=== PATIENT | male | born 1950 | race Caucasian/White ===

== ENCOUNTER → 2016-05-28 | Outpatient (CLI) | payer MEDICARE, OTHER ==
[~2016-05-28] MED LIST: AMLO5TAB2 PO; ASPI1TAB69 PO; ATOR40TA16 PO; CINA30 PO; CITA20TA4 PO; CYCL5TAB PO; FISHCAP4 PO; GLUC15009 PO; HYDR-3516 PO; LEVA750T PO; PANT40TA3 PO; PRED20 PO; SEVEL800 PO; SPIRCAP INH; SYMB80AE INH; VENTAER INH; VITA10003 PO; ZOLP10TA3 PO
--- NOTE | 2016-05-28 10:10 | RADRPT ---
EXAM DATE/TIME: 05/28/2016 00:00 [place] COMPARISON: No previous studies available for comparison. OUTSIDE STUDY REVIEWED: CT of the abdomen and pelvis without intravenous contrast dated 05/06/2016. INDICATIONS : Liver mass biopsy. FINDINGS: The outside CT examination demonstrates 3 lesions within the right lobe of the liver. The largest is mildly exophytic arising from the lower right lobe measuring approximately 8.7 x 6.9 cm. The other 2 are smaller and located near the liver dome and measure up to 16 mm. In the appearance of the larger lesion could potentially represent a giant hemangioma given the appearance. However, these lesions ar e all incompletely characterized given the lack of intravenous contrast. The patient has end-stage re nal disease and is on dialysis. CONCLUSION: There are 3 lesions in the liver with the largest measuring 8.7 cm. These are incompletely characteri zed on the outside examination. Since it is possible these lesions could represent hemangiomas I wonikolai d suggest performing liver protocol CT with and without intravenous contrast. The patient is not a ca ndidate for MRI contrast since the patient is on dialysis. Additionally, this examination could help us target the biopsy to the most suspicious lesion. Alternatively, one could consider PET CT examinat ion to determine if these lesions are hypermetabolic. If these lesions remain suspicious following on e of these examinations it would be reasonable to proceed with biopsy. Chinmay Leone MD on May 28, 2016 at 9:53 Board Certified Radiologist. This report was verified electronically.
== END ==
LOC: HRAD 09:26
PROVIDERS: ATTEND Internal Medicine
DX: R16.0 Hepatomegaly, not elsewhere classified (principal)
CPT/HCPCS: 76140

== ENCOUNTER 2017-09-17 16:43 | Inpatient (IN) ==
[2017-09-18] MEDS ORDERED: Acetaminophen 325 MG Tablet PO PRN (16:17)
[2017-09-18] MEDS ORDERED: Sod Chloride 0.9% Inj 1,000 ML OTHER PRN ×2 (16:17)
[2017-09-18] MEDS ORDERED: Heparin 10,000 UNITS/10 ML Vial (for IV use) IV.FLUSH PRN (16:17)
[2017-09-18] MEDS ORDERED: Gelatin 12 MM/7 MM Topical Foam TOPICAL PRN (16:17)
[2017-09-18] MEDS ORDERED: Heparin 10,000 UNITS/10 ML Vial (for IV use) OTHER PRN (16:17)
[2017-09-18] MEDS ORDERED: Albumin Human 25% Inj 100 ML IV.SIG PRN (16:17)
[2017-09-18] MEDS ORDERED: Sod Chloride 0.9% Inj 1,000 ML IV.CONT PRN (16:17)
[2017-09-19] MEDS ORDERED: Chlorhexidine Gluconate 2% 1 Pack (2 Cloths) TOPICAL PRN ×2 (00:01→04:00)
[2017-09-19] MEDS ORDERED: Bisacodyl 10 MG Supp RECTAL PRN (00:01)
[2017-09-19] MEDS ORDERED: HYDROmorphone PF Inj 2 MG/ML Vial ONE (01:36)
[2017-09-19] MEDS: HYDROmorphone PF Inj 2 MG/ML Vial IV.PUSH PRN ×3 (01:38→17:37)
[2017-09-19] MEDS ORDERED: Chlorhexidine Gluconate 2% 1 Pack (2 Cloths) TOPICAL SCH (04:00)
[2017-09-19] MEDS: Chlorhexidine Gluconate 2% 1 Pack (2 Cloths) TOPICAL SCH (04:00)
[2017-09-19] MEDS: amLODIPine 5 MG Tablet PO SCH (08:52)
[2017-09-19] MEDS: Senna/Docusate Sodium 8.6/50 MG Tablet PO SCH ×2 (08:54→21:41)
[2017-09-19] MEDS: Citalopram 20 MG Tablet PO SCH (08:58)
[2017-09-19] MEDS: Tiotropium Bromide 18 MCG/ACT Inhaler INH SCH (08:58)
[2017-09-19 10:01] LABS: Baso # (Auto) 0.1 th/mm3 (0.0-0.2); Baso % (Auto) 0.4 % (0.0-2.0); Eos # (Auto) 0.1 th/mm3 (0.0-0.4); Eos % (Auto) 0.5 % (0.0-4.0); Hematocrit 30.6 % (39.0-51.0); Hemoglobin 9.5 gm/dL (13.0-17.0); Lymph # (Auto) 0.9 th/mm3 (1.0-4.8); Lymph % (Auto) 4.5 % (9.0-44.0); Mean Corpuscular Hemoglobin 27.8 pg (27.0-34.0); Mean Platelet Volume 9.7 fL (7.0-11.0); Mono # (Auto) 1.7 th/mm3 (0.0-0.9); Mono % (Auto) 8.4 % (0.0-8.0); Neut % (Auto) 86.2 % (16.0-70.0); Platelet Count 310 th/mm3 (150-450); Red Cell Distribution Width 20.1 % (11.6-17.2); White Blood Count 19.8 th/mm3 (4.0-11.0)
[2017-09-19 10:06] LABS: Mean Corpuscular HGB Conc 30.9 % (32.0-36.0)
[2017-09-19 10:43] LABS: Platelet Estimate Normal (Normal); Platelet Morphology Normal (Normal)
--- NOTE | 2017-09-19 13:56 | P.PNNP ---
Subjective Interval history: Reports feeling weakness and right sided abdominal pain <Aracely Zhang - Last Filed: 09/19/17 13:52> Physical Exam Vital signs: Vital Signs 09/19/17 00:00 09/19/17 01:00 09/19/17 02:00 Temperature 97.8 F Pulse Rate 98 H 96 H 96 H Respiratory Rate 15 16 14 Blood Pressure 105/58 L 109/54 L 89/53 L Pulse Oximetry 100 100 100 09/19/17 03:00 09/19/17 04:00 09/19/17 05:00 Temperature 97.9 F Pulse Rate 94 H 92 H 90 Respiratory Rate 17 17 16 Blood Pressure 105/54 L 104/55 L 105/51 L Pulse Oximetry 100 100 100 09/19/17 06:00 09/19/17 07:00 09/19/17 08:00 Temperature 98.5 F Pulse Rate 88 84 91 H Respiratory Rate 17 16 19 Blood Pressure 112/55 L 147/62 H 121/60 Pulse Oximetry 100 100 98 09/19/17 09:23 09/19/17 12:53 Temperature 98.2 F Pulse Rate 87 Respiratory Rate 16 Blood Pressure 104/55 L Pulse Oximetry 96 96 Intake & Output 09/18/17 09/19/17 09/19/17 18:59 06:59 18:59 Other: # Voids 0 Date of Last Bowel Movement 09/19/17 09/19/17 # Bowel Movements 1 - Constitutional no acute distress - Routine HEENT Exam Head: Present: normocephalic ENT: Present: mucous membranes moist - Routine Neck Exam Absent: JVD - Routine Respiratory Exam Present: decreased breath sounds. Absent: rales, rhonchi, wheezes - Routine Cardiovascular Exam Present: RRR - Routine Abdominal Exam Present: soft, normoactive bowel sounds, tenderness - Routine Extremities Exam Present: AV fistula. Absent: Nasima's sign - Routine Skin Exam Present: intact - Routine Neurological Exam Present: alert, oriented X3 - Detailed Neurological Exam: Coma Scale Eye Opening: Spontaneous Verbal Response: Oriented - Routine Psychiatric Exam Present: normal affect <Aracely Zhang - Last Filed: 09/19/17 13:52> Vital signs: Vital Signs 09/19/17 00:00 09/19/17 01:00 09/19/17 02:00 Temperature 97.8 F Pulse Rate 98 H 96 H 96 H Respiratory Rate 15 16 14 Blood Pressure 105/58 L 109/54 L 89/53 L Pulse Oximetry 100 100 100 09/19/17 03:00 09/19/17 04:00 09/19/17 05:00 Temperature 97.9 F Pulse Rate 94 H 92 H 90 Respiratory Rate 17 17 16 Blood Pressure 105/54 L 104/55 L 105/51 L Pulse Oximetry 100 100 100 09/19/17 06:00 09/19/17 07:00 09/19/17 08:00 Temperature 98.5 F Pulse Rate 88 84 91 H Respiratory Rate 17 16 19 Blood Pressure 112/55 L 147/62 H 121/60 Pulse Oximetry 100 100 98 09/19/17 09:23 09/19/17 12:53 09/19/17 14:00 Temperature 98.2 F Pulse Rate 87 87 Respiratory Rate 16 Blood Pressure 104/55 L Pulse Oximetry 96 96 Intake & Output 09/18/17 09/19/17 09/19/17 18:59 06:59 18:59 Other: # Voids 0 Date of Last Bowel Movement 09/19/17 09/19/17 # Bowel Movements 1 <Verónica Green - Last Filed: 09/19/17 16:49> Assessment and Plan - Assessment (1) End stage renal disease on dialysis Code(s): N18.6 - End stage renal disease; Z99.2 - Dependence on renal dialysis Status: Acute Plan: End stage renal disease on hemodialysis on Wednesday, , and Wednesday. Has dialysis is located in [facility] and restaurant host/hostess is Dr. Telles. Left AVF with positive thrill and bruit Continue Renvela and Sensipar Avoid IVF administration. Will continue with dialysis on scheduled days Hemodialysis yesterday tolerated well Labs in AM <Aracely Zhang - Last Filed: 09/19/17 13:52> - Assessment (1) End stage renal disease on dialysis Code(s): N18.6 - End stage renal disease; Z99.2 - Dependence on renal dialysis Status: Acute Plan: Patient seen and examined, agree with above. HD was done yesterday. <Verónica Green - Last Filed: 09/19/17 16:49>
[2017-09-19 15:51] LABS: Anion Gap 11 meq/L (5-15); Aspartate Aminotransferase 724 U/L (15-37); Blood Urea Nitrogen 38 mg/dL (7-18); Calcium 8.6 mg/dL (8.5-10.1); Carbon Dioxide 30.6 meq/L (21.0-32.0); Chloride 97 meq/L (98-107); Glomerular Filtration Rate 10 mL/min (>89); Glucose,Random 112 mg/dL (74-106); Potassium 4.7 meq/L (3.5-5.1); Sodium 139 meq/L (136-145)
[2017-09-19 15:52] LABS: Alanine Aminotransferase 453 U/L (12-78); Albumin 3.4 g/dL (3.4-5.0); Alkaline Phosphatase 147 U/L (45-117); Total Protein 7.5 g/dL (6.4-8.2)
--- NOTE | 2017-09-19 18:48 | P.PNGS ---
Subjective Patient reports: feels better, still having pain Physical Exam Vital signs: Vital Signs 09/19/17 00:00 09/19/17 01:00 09/19/17 02:00 Temperature 97.8 F Pulse Rate 98 H 96 H 96 H Respiratory Rate 15 16 14 Blood Pressure 105/58 L 109/54 L 89/53 L Pulse Oximetry 100 100 100 09/19/17 03:00 09/19/17 04:00 09/19/17 05:00 Temperature 97.9 F Pulse Rate 94 H 92 H 90 Respiratory Rate 17 17 16 Blood Pressure 105/54 L 104/55 L 105/51 L Pulse Oximetry 100 100 100 09/19/17 06:00 09/19/17 07:00 09/19/17 08:00 Temperature 98.5 F Pulse Rate 88 84 91 H Respiratory Rate 17 16 19 Blood Pressure 112/55 L 147/62 H 121/60 Pulse Oximetry 100 100 98 09/19/17 09:23 09/19/17 12:53 09/19/17 14:00 Temperature 98.2 F Pulse Rate 87 87 Respiratory Rate 16 Blood Pressure 104/55 L Pulse Oximetry 96 96 Intake & Output 09/18/17 09/19/17 09/19/17 18:59 06:59 18:59 Other: # Voids 0 Date of Last Bowel Movement 09/19/17 09/19/17 # Bowel Movements 1 - Constitutional no acute distress - Routine Abdominal Exam Present: soft Comments: diffuse pain without peritonitis Assessment and Plan - Assessment (1) Hemoperitoneum Code(s): K66.1 - Hemoperitoneum Status: Acute - Plan 67yo male with hemoperitoneum after biospy, stable vitals, stable HH, follow closely.
[2017-09-20] MEDS: Chlorhexidine Gluconate 2% 1 Pack (2 Cloths) TOPICAL SCH (03:29)
[2017-09-20 06:21] LABS: Hematocrit 25.3 % (39.0-51.0); Hemoglobin 8.1 gm/dL (13.0-17.0); Mean Corpuscular HGB Conc 32.2 % (32.0-36.0); Mean Corpuscular Hemoglobin 28.7 pg (27.0-34.0); Mean Corpuscular Volume 89.2 fL (80.0-100.0); Mean Platelet Volume 9.1 fL (7.0-11.0); Platelet Count 274 th/mm3 (150-450); Red Blood Count 2.83 mil/mm3 (4.50-5.90); Red Cell Distribution Width 19.1 % (11.6-17.2); White Blood Count 15.5 th/mm3 (4.0-11.0)
[2017-09-20 07:13] LABS: Calcium 7.7 mg/dL (8.5-10.1); Carbon Dioxide 26.5 meq/L (21.0-32.0); Potassium 4.7 meq/L (3.5-5.1)
[2017-09-20] MEDS: Citalopram 20 MG Tablet PO SCH (08:33)
[2017-09-20] MEDS: Senna/Docusate Sodium 8.6/50 MG Tablet PO SCH ×2 (08:35→21:26)
[2017-09-20] MEDS: amLODIPine 5 MG Tablet PO SCH (08:36)
[2017-09-20] MEDS: HYDROmorphone PF Inj 2 MG/ML Vial IV.PUSH PRN (08:43)
[2017-09-20] MEDS: Tiotropium Bromide 18 MCG/ACT Inhaler INH SCH (08:45)
--- NOTE | 2017-09-20 09:48 | P.PNNP ---
Subjective Interval history: Reports right sided abdominal discomfort. No shortness of breath or edema. <Aracely Zhang - Last Filed: 09/20/17 09:44> Interval history: Patient seen and examined, agree with above. HD done yesterday, tolerated well. <Verónica Green - Last Filed: 09/20/17 22:12> Physical Exam Vital signs: Vital Signs 09/19/17 12:53 09/19/17 14:00 09/19/17 20:00 Temperature 98.2 F 98.1 F Pulse Rate 87 87 87 Respiratory Rate 16 18 Blood Pressure 104/55 L 118/55 L Pulse Oximetry 96 93 L 09/20/17 00:00 09/20/17 04:40 09/20/17 08:00 Temperature 97.5 F L 97.3 F L 97.6 F Pulse Rate 88 96 H 84 Respiratory Rate 18 18 17 Blood Pressure 120/57 L 140/64 111/52 L Pulse Oximetry 93 L 92 L 99 Intake & Output 09/19/17 09/20/17 09/20/17 18:59 06:59 18:59 Intake Total 0 / 0 480 / 480 Output Total 0 / 0 Balance 0 / 0 480 / 480 Intake: Oral 480 / 480 Other 0 / 0 Output: Urine 0 / 0 Other: Date of Last Bowel Movement 09/19/17 - Constitutional no acute distress, cooperative - Routine HEENT Exam Head: Present: normocephalic ENT: Present: mucous membranes moist - Routine Neck Exam Present: supple. Absent: JVD - Routine Respiratory Exam Present: decreased breath sounds. Absent: rales, rhonchi, wheezes - Routine Cardiovascular Exam Present: RRR, murmur - Routine Abdominal Exam Present: soft, normoactive bowel sounds, tenderness - Routine Extremities Exam Absent: edema, Nasima's sign - Routine Skin Exam Present: intact, warm - Routine Neurological Exam Present: alert, oriented X3 - Detailed Neurological Exam: Coma Scale Eye Opening: Spontaneous - Routine Psychiatric Exam Present: normal affect <Aracely Zhang - Last Filed: 09/20/17 09:44> Vital signs: Vital Signs 09/20/17 00:00 09/20/17 04:40 09/20/17 08:00 Temperature 97.5 F L 97.3 F L 97.6 F Pulse Rate 88 96 H 84 Respiratory Rate 18 18 17 Blood Pressure 120/57 L 140/64 111/52 L Pulse Oximetry 93 L 92 L 99 09/20/17 12:00 09/20/17 16:00 09/20/17 20:00 Temperature 98.3 F 98.3 F 97.7 F Pulse Rate 87 85 85 Respiratory Rate 17 17 16 Blood Pressure 119/57 L 111/56 L 133/61 Pulse Oximetry 90 L 95 95 Intake & Output 09/20/17 09/20/17 09/21/17 06:59 18:59 06:59 Intake Total 1380 / 1380 Output Total 0 / 0 Balance 1380 / 1380 Intake: Oral 1380 / 1380 Output: Urine 0 / 0 <Verónica Green - Last Filed: 09/20/17 22:12> Assessment and Plan - Assessment (1) End stage renal disease on dialysis Code(s): N18.6 - End stage renal disease; Z99.2 - Dependence on renal dialysis Status: Acute Plan: End stage renal disease on hemodialysis on Wednesday, , and Wednesday. Has dialysis is located in [facility] and continuous process rotary drum tanner is Dr. Telles. Left AVF with positive thrill and bruit Continue Renvela and Sensipar Avoid IVF administration. Will continue with dialysis on scheduled days Hemodialysis planned for tomorrow will remove fluid as tolerated <Aracely Zhang - Last Filed: 09/20/17 09:44> - Assessment (1) End stage renal disease on dialysis Code(s): N18.6 - End stage renal disease; Z99.2 - Dependence on renal dialysis Status: Acute <Verónica Green - Last Filed: 09/20/17 22:12>
--- NOTE | 2017-09-20 12:19 | P.PNGS ---
Subjective Patient reports: still having pain, afebrile (hh stable, bp stable) Physical Exam Vital signs: Vital Signs 09/19/17 12:53 09/19/17 14:00 09/19/17 20:00 Temperature 98.2 F 98.1 F Pulse Rate 87 87 87 Respiratory Rate 16 18 Blood Pressure 104/55 L 118/55 L Pulse Oximetry 96 93 L 09/20/17 00:00 09/20/17 04:40 09/20/17 08:00 Temperature 97.5 F L 97.3 F L 97.6 F Pulse Rate 88 96 H 84 Respiratory Rate 18 18 17 Blood Pressure 120/57 L 140/64 111/52 L Pulse Oximetry 93 L 92 L 99 Intake & Output 09/19/17 09/20/17 09/20/17 18:59 06:59 18:59 Intake Total 0 / 0 480 / 480 Output Total 0 / 0 Balance 0 / 0 480 / 480 Intake: Oral 480 / 480 Other 0 / 0 Output: Urine 0 / 0 Other: Date of Last Bowel Movement 09/19/17 - Constitutional no acute distress - Routine Abdominal Exam Present: soft (mild distension, no rebound, mild ttp diffuse) Assessment and Plan - Assessment (1) Hemoperitoneum Code(s): K66.1 - Hemoperitoneum Status: Acute - Plan s/p ir bx of 9cm liver mass anemia or blood loss, s/p ir embolization, stable currently on surgical floor PLAN ok for diet defer to medicine, cards, nephro check abdominal exams non op mgnt will follow prn
--- NOTE | 2017-09-20 22:03 | P.PN ---
Subjective Interval history: Nursing denies any deterioration since last night. Patient tolerating p.o. intake. Patient denies any nausea vomiting. Is able to demonstrate orientation 3 but with slow mentation. Physical Exam Vital signs: Vital Signs 09/20/17 00:00 09/20/17 04:40 09/20/17 08:00 Temperature 97.5 F L 97.3 F L 97.6 F Pulse Rate 88 96 H 84 Respiratory Rate 18 18 17 Blood Pressure 120/57 L 140/64 111/52 L Pulse Oximetry 93 L 92 L 99 09/20/17 12:00 09/20/17 16:00 Temperature 98.3 F 98.3 F Pulse Rate 87 85 Respiratory Rate 17 17 Blood Pressure 119/57 L 111/56 L Pulse Oximetry 90 L 95 Intake & Output 09/20/17 09/20/17 09/21/17 06:59 18:59 06:59 Intake Total 1380 / 1380 Output Total 0 / 0 Balance 1380 / 1380 Intake: Oral 1380 / 1380 Output: Urine 0 / 0 Narrative: Abdomen is soft, nontender, nondistended Unlabored breathing, clear lungs bilaterally Results - Labs CBC & Chem 7: 09/20/17 05:25 09/20/17 05:25 Laboratory Results - last 24 hr 09/17/17 09/20/17 09/20/17 16:45 05:25 05:25 WBC 15.5 H RBC 2.83 L Hgb 8.1 L Hct 25.3 L MCV 89.2 MCH 28.7 MCHC 32.2 RDW 19.1 H Plt Count 274 MPV 9.1 Sodium 141 Potassium 4.7 Chloride 101 Carbon Dioxide 26.5 Anion Gap 14 BUN 62 H Creatinine 7.76 H Estimated GFR 7 L Random Glucose 96 Calcium 7.7 L D MTS Gel Crossmatch See Detail Assessment and Plan - Plan Liver mass with bleeding during biopsy Biopsy performed at [facility], patient was transferred for higher level of care needs s/p embolization of right inferior hepatic artery with Dr. Álvarez on 09/17/2017 General surgery is aware of patient, consult if further bleeding occurs Core biopsies are suspicious for vascular tissue, hemangioma is top suspect with official results pending Outpatient follow-up at [facility] for pathology results Acute blood loss anemia Trending hemoglobin stable End-stage renal disease, dialysis Continue with dialysis on Wednesday, , Wednesday Urine output is minimal per patient history Continue Tenisha Ramirez Nephrology following Hypertension Continue Norvasc 5 mg daily Insomnia Continue Ambien 10 mg nightly Depression continue citalopram COPD Stable, currently on 4 L anticipate walk test being needed Deconditioning -We will obtain physical therapy evaluation to see if patient is safe to go home since he lives by himself DVT prophylaxis SCDs, chemoprophylaxis held due to acute blood loss from liver biopsy
[2017-09-21] MEDS: Chlorhexidine Gluconate 2% 1 Pack (2 Cloths) TOPICAL SCH (07:15)
[2017-09-21] MEDS: amLODIPine 5 MG Tablet PO SCH (08:09)
[2017-09-21] MEDS: Tiotropium Bromide 18 MCG/ACT Inhaler INH SCH (08:10)
[2017-09-21] MEDS: Citalopram 20 MG Tablet PO SCH (08:10)
[2017-09-21] MEDS: Senna/Docusate Sodium 8.6/50 MG Tablet PO SCH (08:15)
--- NOTE | 2017-09-21 13:55 | P.PN ---
Subjective Interval history: Patient seen after HD, has mild SOB, on nasal cannula, no abd. pain. Physical Exam Vital signs: Vital Signs 09/20/17 16:00 09/20/17 20:00 09/21/17 00:00 Temperature 98.3 F 97.7 F 97.5 F L Pulse Rate 85 85 87 Respiratory Rate 17 16 16 Blood Pressure 111/56 L 133/61 134/67 Pulse Oximetry 95 95 97 09/21/17 04:00 09/21/17 08:00 09/21/17 12:00 Temperature 97.7 F 98.0 F 97.7 F Pulse Rate 82 81 103 H Respiratory Rate 16 18 18 Blood Pressure 135/66 142/67 H 106/57 L Pulse Oximetry 95 95 95 Intake & Output 09/20/17 09/21/17 09/21/17 18:59 06:59 18:59 Intake Total 1380 / 1380 240 / 240 Output Total 0 / 0 Balance 1380 / 1380 240 / 240 Weight 76 kg Intake: Oral 1380 / 1380 240 / 240 Output: Urine 0 / 0 Other: # Voids 3 Date of Last Bowel Movement 09/20/17 Narrative: Alert, not in distress. - Constitutional no acute distress - Routine HEENT Exam Head: Present: normocephalic - Routine Neck Exam Present: supple - Routine Abdominal Exam Present: soft, distended Comments: no tenderness. - Routine Extremities Exam Present: edema Results - Labs CBC & Chem 7: 09/20/17 05:25 09/20/17 05:25 Assessment and Plan - Assessment (1) End stage renal disease on dialysis Code(s): N18.6 - End stage renal disease; Z99.2 - Dependence on renal dialysis Status: Acute - Attending Attestation (1) End stage renal disease on dialysis Code(s): N18.6 - End stage renal disease; Z99.2 - Dependence on renal dialysis Status: Acute Plan: End stage renal disease on hemodialysis on Wednesday, , and Wednesday. [facility] dialysis is located in [facility] and business intelligence manager is Dr. Telles. Left AVF with positive thrill and bruit Continue Renvela and Sensipar Avoid IVF administration. Will continue with dialysis on scheduled days Hemodialysis done today, tolerated well. 2. Post Liver Biopsy and Hemoperitoneum. 3. Anemia. Surgery following, Hgb. is stable.
--- NOTE | 2017-09-21 14:41 | P.DS ---
Date of admission: 09/17/17 16:43 Primary care physician: UNKNOWN Brief History from admission: He presented to [facility] for outpatient CT-guided liver biopsy for 9 mm mass in the anterior aspect of the right lobe of the liver. Core biopsies were obtained with "possibly vascular" tissue. Bleeding was noted from the guiding cannula and follow-up CT demonstrated 1.8 cm subcapsular hematoma. He developed hypotension (pt states in 60s). Hgb was dropping . Followup CT demonstrated further bleeding with subcapsular fluid collection now 3.5 cm. Was transferred to [facility]. DS: Diagnosis - Discharge Diagnosis (1) End stage renal disease on dialysis Status: Acute (2) Hemoperitoneum Status: Acute DS: Summary Hospital Course: He presented to [facility] for outpatient CT-guided liver biopsy for 9 mm mass in the anterior aspect of the right lobe of the liver. Core biopsies were obtained with "possibly vascular" tissue. Bleeding was noted from the guiding cannula and follow-up CT demonstrated 1.8 cm subcapsular hematoma. He developed hypotension (pt states in 60s). Hgb was dropping . Followup CT demonstrated further bleeding with subcapsular fluid collection now 3.5 cm. Patient was transferred to [facility] where IR performed empiric embolization of inferior branch R hepatic artery. Pt was monitored with stable h/h. Underwent his typical dialysis regimen while inpatient. Was tolerating po intake. Patient refused inpatient rehab. Patient has met maximal benefit from hospitalization is clinically stable for discharge with home health. - Time Spent with Patient Total time spent providing and/or coordinating discharge services: Less than 30 minutes Exam Vital signs: Vital Signs 09/20/17 16:00 09/20/17 20:00 09/21/17 00:00 Temperature 98.3 F 97.7 F 97.5 F L Pulse Rate 85 85 87 Respiratory Rate 17 16 16 Blood Pressure 111/56 L 133/61 134/67 Pulse Oximetry 95 95 97 09/21/17 04:00 09/21/17 08:00 09/21/17 12:00 Temperature 97.7 F 98.0 F 97.7 F Pulse Rate 82 81 103 H Respiratory Rate 16 18 18 Blood Pressure 135/66 142/67 H 106/57 L Pulse Oximetry 95 95 95 Intake & Output 07/02/18 07/03/18 07/03/18 18:59 06:59 18:59 Intake Total 1380 / 1380 240 / 240 Output Total 0 / 0 Balance 1380 / 1380 240 / 240 Weight 76 kg Intake: Oral 1380 / 1380 240 / 240 Output: Urine 0 / 0 Other: # Voids 3 Date of Last Bowel Movement 09/20/17 Narrative: Lying in bed, awake and alert, no acute distress Abdomen soft, nontender, nondistended No jaundice Results Procedures completed during hospitalization: embolization of inferior branch R hepatic artery. Discharge Plan - Discharge Disposition Patient Disposition: W/Home Health Service - Discharge Condition Condition: Stable - Discharge Order Discharge Orders: Discharge Order (Routine); Ordered 09/21/17 Ordered By: Johnathon Garcia - Discharge Details Anticipated Discharge Date: 09/21/17 - Physicians Team Primary Care Provider: UNKNOWN, Attending Provider: Johnathon Garcia Other Providers: Verónica Green MD ; Daniel Herzog MD ; Ashish Hernandez MD - Rxs /Orders / Referrals /Forms Prescriptions: Continue albuterol sulfate [Ventolin HFA] 90 mcg/actuation Hfa Aerosol Inhaler 2 puff INHALATION Q4-6H PRN (Reason: Shortness Of Breath) amlodipine 5 mg Tablet 5 mg PO DAILY cholecalciferol (vitamin D3) 1,000 unit Capsule 1,000 unit PO DAILY cinacalcet 30 mg Tablet 30 mg PO DAILY citalopram 20 mg Tablet 20 mg PO DAILY hydrocodone-acetaminophen 7.5-325 mg Tablet 1 tab PO Q4H PRN (Reason: Pain) omega [id number] oil [Fish Oil] 1,000 mg (120 mg-180 mg) Capsule PO DAILY pantoprazole 40 mg Tablet,Delayed Release (Dr/Ec) 40 mg PO DAILY sevelamer carbonate 800 mg Tablet 2,400 mg PO TID tiotropium bromide 18 mcg Capsule, W/Inhalation Device 1 cap INHALATION ONCE zolpidem 10 mg Tablet 10 mg PO HS PRN (Reason: Insomnia) Ambulatory Orders / Order Sets / DME: Oxygen Tank (2-5 liter) (Routine) Location: Determined by Patient Ordered By: Johnathon Garcia Walker With Front Wheels (1 each) (Routine) Location: Determined by Patient Ordered By: Johnathon Garcia Referrals: Occupational Medicine Officer [Outside] - 09/23/17 () Dainel Herzog MD [Physician] - See Instructions UNKNOWN, [Primary Care Provider] - See Instructions
--- NOTE | 2017-09-21 16:43 | P.DCO ---
- Physical Therapy Order: Evaluate and treat, Improve ambulation, Strength and gait training - Occupational Therapy Order: Evaluate and treat, Improve ADL - Home Health Nursing Order: Signs/symptoms of disease process, Oxygen administration education, Nursing assessment with vital signs - Certification I have seen patient Daryl Pantoja on 09/21/17. My clinical findings support the need for the requested home health care services because: Patient has SOB, Medication compliance is questionable I certify that my clinical findings support that this patient is homebound because: Unsteady gait/balance, Unsafe to leave home unassisted
--- NOTE | 2017-09-23 10:07 | P.PN ---
Subjective Interval history: Patient is lying comfortably in bed in the ICU today. He has no new complaints. His pain is adequately controlled with Dilaudid. He asks when he might be going home, I explained he needs to graduate from the ICU first but he is ready to do that today. Physical Exam Vital signs: Vital Signs 09/19/17 00:00 09/19/17 01:00 09/19/17 02:00 Temperature 97.8 F Pulse Rate 98 H 96 H 96 H Respiratory Rate 15 16 14 Blood Pressure 105/58 L 109/54 L 89/53 L Pulse Oximetry 100 100 100 09/19/17 03:00 09/19/17 04:00 09/19/17 05:00 Temperature 97.9 F Pulse Rate 94 H 92 H 90 Respiratory Rate 17 17 16 Blood Pressure 105/54 L 104/55 L 105/51 L Pulse Oximetry 100 100 100 09/19/17 06:00 09/19/17 07:00 09/19/17 08:00 Temperature 98.5 F Pulse Rate 88 84 91 H Respiratory Rate 17 16 19 Blood Pressure 112/55 L 147/62 H 121/60 Pulse Oximetry 100 100 98 09/19/17 09:23 09/19/17 12:53 09/19/17 14:00 Temperature 98.2 F Pulse Rate 87 87 Respiratory Rate 16 Blood Pressure 104/55 L Pulse Oximetry 96 96 Intake & Output 09/18/17 09/19/17 09/19/17 18:59 06:59 18:59 Other: # Voids 0 Date of Last Bowel Movement 09/19/17 09/19/17 # Bowel Movements 1 Narrative: GENERAL: Sleeping, easily arousable, alert and oriented 3, generally weak SKIN: Warm and dry. HEAD: Normocephalic. EYES: No scleral icterus. No injection or drainage. NECK: Supple, trachea midline. No JVD or lymphadenopathy. CARDIOVASCULAR: Regular rate and rhythm , 3/6 murmur, no gallops, or rubs. RESPIRATORY: Breath sounds equal bilaterally. No accessory muscle use. GASTROINTESTINAL: Abdomen soft, non-tender, nondistended. MUSCULOSKELETAL: No cyanosis, or edema. BACK: Nontender without obvious deformity. No CVA tenderness. Results - Labs CBC & Chem 7: 09/19/17 09:49 09/19/17 06:27 Labs: Laboratory Results - last 24 hr 09/17/17 09/17/17 09/17/17 16:45 20:00 22:10 WBC RBC Hgb Hct MCV MCH MCHC RDW Plt Count MPV Prelim Diff (Auto) Neut % (Auto) Lymph % (Auto) Island % (Auto) Eos % (Auto) Baso % (Auto) Neut # (Auto) Lymph # (Auto) Island # (Auto) Eos # (Auto) Baso # (Auto) CBC Comment WBC Differential Diff Scan Differential Comment Platelet Estimate Platelet Morphology PT INR APTT Fibrinogen Sodium 138 Potassium 5.0 Chloride 98 Carbon Dioxide 24.5 Anion Gap 16 H BUN 36 H Creatinine 6.11 H Estimated GFR 9 L Random Glucose 118 H Calcium 8.0 L Prot Corrected Calcium Phosphorus 7.8 H Magnesium 2.1 Total Bilirubin 0.6 AST 36 ALT 20 Alkaline Phosphatase 127 H Total Protein 6.7 Albumin 3.2 L Nasal Screen MRSA (PCR) MRSA NOT DETECTED Hepatitis A IgM Ab Hep Bs Antigen Hep B Core IgM Ab Hep C IgG Ab Blood Type O Positive Antibody Screen Negative MTS Gel Crossmatch See Detail 09/17/17 09/17/17 09/17/17 22:10 22:10 22:10 WBC 21.7 H RBC 3.60 L Hgb 10.1 L Hct 32.0 L MCV 88.9 MCH 28.0 MCHC 31.5 L RDW 19.7 H Plt Count 332 MPV 9.2 Prelim Diff (Auto) Neut % (Auto) 88.5 H Lymph % (Auto) 4.4 L Island % (Auto) 7.0 Eos % (Auto) 0.0 Baso % (Auto) 0.1 Neut # (Auto) 19.1 H Lymph # (Auto) 1.0 Island # (Auto) 1.5 H Eos # (Auto) 0.0 Baso # (Auto) 0.0 CBC Comment DIFF FINAL WBC Differential Diff Scan Differential Comment Platelet Estimate Platelet Morphology PT Cancelled 10.8 INR Cancelled 1.1 APTT 24.8 Fibrinogen 249 Sodium Potassium Chloride Carbon Dioxide Anion Gap BUN Creatinine Estimated GFR Random Glucose Calcium Prot Corrected Calcium Phosphorus Magnesium Total Bilirubin AST ALT Alkaline Phosphatase Total Protein Albumin Nasal Screen MRSA (PCR) Hepatitis A IgM Ab Hep Bs Antigen Hep B Core IgM Ab Hep C IgG Ab Blood Type Antibody Screen MTS Gel Crossmatch 09/18/17 09/18/17 09/18/17 03:41 03:41 13:57 WBC 15.3 H 14.3 H RBC 3.18 L 2.89 L Hgb 8.9 L 8.4 L Hct 28.4 L 25.8 L MCV 89.1 89.4 MCH 27.9 29.1 MCHC 31.4 L 32.5 RDW 19.7 H 19.7 H Plt Count 292 262 MPV 9.0 9.3 Prelim Diff (Auto) Neut % (Auto) 81.9 H 78.7 H Lymph % (Auto) 7.4 L 7.4 L Island % (Auto) 9.8 H 11.0 H Eos % (Auto) 0.3 2.4 Baso % (Auto) 0.6 0.5 Neut # (Auto) 12.5 H 11.3 H Lymph # (Auto) 1.1 1.1 Island # (Auto) 1.5 H 1.6 H Eos # (Auto) 0.0 0.3 Baso # (Auto) 0.1 0.1 CBC Comment DIFF FINAL DIFF FINAL WBC Differential Diff Scan Differential Comment Platelet Estimate Platelet Morphology PT INR APTT Fibrinogen Sodium 141 Potassium 4.7 Chloride 100 Carbon Dioxide 27.7 Anion Gap 13 BUN 41 H Creatinine 6.55 H Estimated GFR 8 L Random Glucose 110 H Calcium 7.3 L* Prot Corrected Calcium 7.9 L Phosphorus Magnesium Total Bilirubin 0.5 AST 55 H ALT 23 Alkaline Phosphatase 113 Total Protein 6.0 L D Albumin 2.8 L Nasal Screen MRSA (PCR) Hepatitis A IgM Ab Hep Bs Antigen Hep B Core IgM Ab Hep C IgG Ab Blood Type Antibody Screen MTS Gel Crossmatch 09/18/17 09/19/17 09/19/17 13:57 06:27 09:49 WBC 19.8 H RBC 3.40 L Hgb 9.5 L Hct 30.6 L MCV 90.0 MCH 27.8 MCHC 30.9 L RDW 20.1 H Plt Count 310 MPV 9.7 Prelim Diff (Auto) Slide review pending Neut % (Auto) 86.2 H Lymph % (Auto) 4.5 L Island % (Auto) 8.4 H Eos % (Auto) 0.5 Baso % (Auto) 0.4 Neut # (Auto) 17.0 H Lymph # (Auto) 0.9 L Island # (Auto) 1.7 H Eos # (Auto) 0.1 Baso # (Auto) 0.1 CBC Comment WBC Differential . Diff Scan Auto diff confirmed Differential Comment . Platelet Estimate Normal Platelet Morphology Normal PT INR APTT Fibrinogen Sodium 139 Potassium 4.7 Chloride 97 L Carbon Dioxide 30.6 Anion Gap 11 BUN 38 H Creatinine 5.59 H Estimated GFR 10 L Random Glucose 112 H Calcium 8.6 Prot Corrected Calcium Phosphorus Magnesium Total Bilirubin 0.5 AST 724 H ALT 453 H Alkaline Phosphatase 147 H Total Protein 7.5 Albumin 3.4 Nasal Screen MRSA (PCR) Hepatitis A IgM Ab NONREACTIVE Hep Bs Antigen NONREACTIVE Hep B Core IgM Ab NONREACTIVE Hep C IgG Ab NONREACTIVE Blood Type Antibody Screen MTS Gel Crossmatch Assessment and Plan - Plan Liver mass with bleeding during biopsy Biopsy performed at [facility], patient was transferred for higher level of care needs s/p embolization of right inferior hepatic artery with Dr. Álvarez on 09/17/2017 General surgery is aware of patient, consult if further bleeding occurs Core biopsies are suspicious for vascular tissue, hemangioma is top suspect with official results pending Outpatient follow-up at [facility] for pathology results Acute blood loss anemia Hemoglobin dropped to 9.5, no need for transfusion yet Continue to follow CBC for hemoglobin trend End-stage renal disease, dialysis Continue with dialysis on Wednesday, , Wednesday Urine output is minimal per patient history Continue Tenisha Ramirez Appreciate nephrology consult Hypertension Continue Norvasc 5 mg daily Insomnia Continue Ambien 10 mg nightly Depression continue citalopram COPD Stable DVT prophylaxis SCDs, chemoprophylaxis held due to acute blood loss from liver biopsy
== END 2017-09-21 19:03 | disposition home health service (06) ==
LOC: N03 16:43 → N07 09-19 16:56
PROVIDERS: ADMIT Hospitalist; ATTEND Hospitalist